=== PATIENT | male | born 1980 | race African-American/Black ===

== ENCOUNTER 2018-03-04 16:23 | Emergency (ER) | payer BC ==
[2018-03-04] MEDS ORDERED: Codeine/Promethazine 10-6.25 MG/5 ML Syrup 5 ML UD Cup PO STA (17:32)
--- NOTE | 2018-03-04 17:32 | EDM.PDOC ---
ED HPI GENERAL MEDICAL PROBLEM - General Chief Complaint: Respiratory Problem Stated Complaint: COUGH Time Seen by Provider: 03/04/18 17:21 Source of Information: Reports: Patient History Limitations: Reports: No Limitations - History of Present Illness INITIAL COMMENTS - FREE TEXT/NARRATIVE: HISTORY AND PHYSICAL: History of present illness: Patient is a 37-year-old male who presents to the emergency room with complaints of body aches, sore throat, cough and subjective fevers. Mild nausea and generally feeling unwell. He states his symptoms started approximately 10 days ago. His roommate was diagnosed with strep throat. He has been using over- the-counter products without any relief. Denies any chest pain, shortness of breath, abdominal pain, vomiting, diarrhea, constipation or dysuria. He states he has a decreased appetite but has been eating and drinking. Not received the influenza vaccine this year. Review of systems: As per history of present illness and below otherwise all systems reviewed and negative. Past medical history: As per history of present illness and as reviewed below otherwise noncontributory. Surgical history: As per history of present illness and as reviewed below otherwise noncontributory. Social history: See social history for further information Family history: As per history of present illness and as reviewed below otherwise noncontributory. Physical exam: General: Well-developed and well-nourished 37-year-old -[place] male. Alert and oriented. Nontoxic appearing and in no acute distress. HEENT: Atraumatic, normocephalic, pupils equal and reactive bilaterally, negative for conjunctival pallor or scleral icterus, nasal stuffiness otherwise patent bilaterally, mucous membranes moist, TMs normal bilaterally, erythema to the posterior oropharynx without exudate, maxillary sinus tenderness bilaterally , neck supple, nontender, trachea midline. No drooling or trismus noted. No meningeal signs. No hot potato voice noted. No mastoid tenderness. No TMJ. Lungs: Clear to auscultation, breath sounds equal bilaterally, chest nontender. Heart: S1S2, regular rate and rhythm without overt murmur Abdomen: Soft, nondistended, nontender. Negative for masses. Negative for costovertebral tenderness. Pelvis: Stable nontender. Genitourinary: Deferred. Rectal: Deferred. Skin: Intact, warm, dry. No lesions or rashes noted. Extremities: Atraumatic, moves all extremities per self without difficulty or deficits. negative for cords or calf pain. Neurovascular unremarkable. Neuro: Awake, alert, oriented. Cranial nerves II through XII unremarkable. Cerebellum unremarkable. Motor and sensory unremarkable throughout. Exam nonfocal. Notes: Negative chest x-ray and influenza screening. Due to patient's sinus/ pharyngitis symptoms, longevity of symptoms, and recent exposure; will treat with Augmentin. Supportive care measures were reviewed and discussed. He voices understanding and agreeable to plan of care. Denies any further questions or concerns at this time. Diagnostics: Influenza, chest x-ray Therapeutics: Phenergan with codeine Prescription: Augmentin Tylneol #3 (#15) Impression: Pharyngitis Plan: 1. Please take the antibiotic as prescribed. 2. Tylenol and/or ibuprofen as needed for pain and fever management. You may use [id number] lozenges for throat pain relief. Warm saltwater gargle rinses spit 3-4 times daily. Please continue toothbrush once you have started the antibiotic to avoid reinfection. 3. Please follow-up with your primary care provider and oriented the institutional research coordinator in the next 1-2 days. Return to the ED as needed and as discussed. Definitive disposition and diagnosis as appropriate pending reevaluation and review of above. Generalized Pain Score (Numeric/FACES): 10 - Related Data Allergies Allergy/AdvReac Type Severity Reaction Status Date / Time No Known Allergies Allergy Verified 03/04/18 16:42 Home Meds: Home Meds . [No Known Home Meds] 04/13/14 [History] Past Medical History - Past Health History Medical/Surgical History: Denies Medical/Surgical History - Infectious Disease History Infectious Disease History: Reports: Chicken Pox Social & Family History - Family History Family Medical History: Noncontributory - Tobacco Use Smoking Status *Q: Current Every Day Smoker Years of Tobacco use: 20 Packs/Tins Daily: 0.5 - Recreational Drug Use Recreational Drug Use: No ED ROS GENERAL - Review of Systems Review Of Systems: ROS reveals no pertinent complaints other than HPI. ED EXAM, GENERAL - Physical Exam Exam: See Below (See dictation) Course - Vital Signs Last Recorded V/S: Last Vital Signs Temp 98.8 F 03/04/18 16:40 Pulse 97 03/04/18 16:40 Resp 18 03/04/18 16:40 BP 118/76 03/04/18 16:40 Pulse Ox 95 03/04/18 16:40 - Orders/Labs/Meds Meds: Medications Discontinued Medications Generic Name Dose Route Start Last Admin Trade Name Wili PRN Reason Stop Dose Admin Promethazine HCl/Codeine 10 ml 03/04/18 17:32 03/04/18 17:44 Phenergan With Codeine PO 03/04/18 17:33 10 ml NOW STA Administration Departure - Departure Time of Disposition: 18:06 Disposition: Home, Self-Care Clinical Impression: Pharyngitis Qualifiers: Pharyngitis/tonsillitis etiology: unspecified etiology Qualified Code(s): J02.9 - Acute pharyngitis, unspecified - Discharge Information Instructions: Pharyngitis, [id number] Referrals: PCP,None [Primary Care Provider] - Forms: ED Department Discharge Additional Instructions: The following information is given to patients seen in the emergency department who are being discharged to home. This information is to outline your options for follow-up care. We provide all patients seen in our emergency department with a follow-up referral. The need for follow-up, as well as the timing and circumstances, are variable depending upon the specifics of your emergency department visit. If you don't have a primary care physician on staff, we will provide you with a referral. We always advise you to contact your personal physician following an emergency department visit to inform them of the circumstance of the visit and for follow-up with them and/or the need for any referrals to a consulting specialist. The emergency department will also refer you to a specialist when appropriate. This referral assures that you have the opportunity for follow-up care with a specialist. All of these measure are taken in an effort to provide you with optimal care, which includes your follow-up. Under all circumstances we always encourage you to contact your private physician who remains a resource for coordinating your care. When calling for follow-up care, please make the office aware that this follow-up is from your recent emergency room visit. If for any reason you are refused follow-up, please contact the Emergency Department at and asked to speak to the emergency department charge nurse. Primary Care [address] [place] [address] [facility] [address] [place] [address] 1. Please take the antibiotic as prescribed. 2. Tylenol and/or ibuprofen as needed for pain and fever management. You may use yejr-lnd-[id number] lozenges for throat pain relief. Warm saltwater gargle rinses spit 3-4 times daily. Please continue toothbrush once you have started the antibiotic to avoid reinfection. 3. Please follow-up with your primary care provider and oriented the institutional research coordinator in the next 1-2 days. Return to the ED as needed and as discussed.
--- NOTE | 2018-03-04 17:58 | CR ---
INDICATION: Cough chills TECHNIQUE: Two view chest. FINDINGS: The lungs are clear. The heart, mediastinum and pulmonary vessels are of normal size. There is no evidence of pleural disease. IMPRESSION: Negative chest. Dictated by Letty Quintana MD @ Mar 04 2018 5:56PM Signed by Dr. Letty Quintana @ Mar 04 2018 5:56PM
[2018-03-04 18:21] VITALS: BP 118/80
== END 2018-03-04 18:21 | disposition home or self-care (01) ==
LOC: MW.ED 16:23
DX: J02.9 Acute pharyngitis, unspecified (principal); F17.200 Nicotine dependence, unspecified, uncomplicated
CPT/HCPCS: 71046; 87804; 99283; A9270

== ENCOUNTER 2018-12-22 20:49 | Emergency (ER) | payer BC ==
--- NOTE | 2018-12-22 21:12 | EDM.PDOC ---
ED HPI GENERAL MEDICAL PROBLEM - General Chief Complaint: General Stated Complaint: PERSONAL Time Seen by Provider: 12/22/18 21:12 Source of Information: Reports: Patient History Limitations: Reports: No Limitations - History of Present Illness INITIAL COMMENTS - FREE TEXT/NARRATIVE: HISTORY AND PHYSICAL: History of present illness: Patient is a 38-year-old male presents to the ED with complaint of testicular pain and swelling. 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 He states he felt a small pop in the groin but did not think much of it. He states it started swelling shortly after and the past few days he is having a lot of testicular pain. He denies fevers, chills, nausea, vomiting, abdominal pain, dysuria, or penile discharge. He denies significant past medical history. Review of systems: As per history of present illness and below otherwise all systems reviewed and negative. Past medical history: As per history of present illness and as reviewed below otherwise noncontributory. Surgical history: As per history of present illness and as reviewed below otherwise noncontributory. Social history: No reported history of drug or alcohol abuse. Family history: As per history of present illness and as reviewed below otherwise noncontributory. Physical exam: General: Patient sitting comfortably in no acute distress and nontoxic appearing HEENT: Atraumatic, normocephalic, pupils reactive, negative for conjunctival pallor or scleral icterus, mucous membranes moist, throat clear, neck supple, nontender, trachea midline. No meningeal signs. Lungs: Clear to auscultation, breath sounds equal bilaterally, chest nontender. Heart: S1S2, regular, negative for clicks, rubs, or overt murmur. Abdomen: Soft, nondistended, nontender. Negative for masses or hepatosplenomegaly. Negative for costovertebral tenderness. No rigidity, rebound , guarding. Pelvis: Stable nontender. Genitourinary: There is notable swelling of the right testicle without any obvious erythema or warmth. Pain to palpation of the right spermatacord, pain to palpation of the right testicle diffusely. No pain to palpation of the left testicle. Patient unable to tolerate examination for hernia. Rectal: Deferred. Extremities: Atraumatic, negative for cords or calf pain. Neurovascular unremarkable. Neuro: Awake, alert, oriented. Cranial nerves II through XII unremarkable. Cerebellum unremarkable. Motor and sensory unremarkable throughout. Exam nonfocal. Notes: Diagnostics: Scrotal US, UA Therapeutics: Toradol 60mg IM Prescriptions: Impression: Testicular pain, hydrocele, acute epididyal orchitis Plan: Take medication as instructed Follow up with urology Return to ED as needed as discussed Definitive disposition and diagnosis as appropriate pending reevaluation and review of above. Right Scrotum Pain Score (Numeric/FACES): 7 - Related Data Allergies Allergy/AdvReac Type Severity Reaction Status Date / Time No Known Allergies Allergy Verified 12/22/18 20:52 Home Meds: Home Meds Doxycycline [Vibramycin] 100 mg PO BID 10 Days #20 tab 12/22/18 [Rx] Past Medical History - Past Health History Medical/Surgical History: Denies Medical/Surgical History - Infectious Disease History Infectious Disease History: Reports: Chicken Pox Social & Family History - Family History Family Medical History: Noncontributory - Tobacco Use Smoking Status *Q: Current Every Day Smoker Years of Tobacco use: 20 Packs/Tins Daily: 0.5 - Caffeine Use Caffeine Use: Reports: Energy Drinks - Recreational Drug Use Recreational Drug Use: No ED ROS GENERAL - Review of Systems Review Of Systems: ROS reveals no pertinent complaints other than HPI. ED EXAM, GENERAL - Physical Exam Exam: See Below (see dictation) Course - Vital Signs Last Recorded V/S: Last Vital Signs Temp 97.5 F 12/22/18 20:52 Pulse 105 H 12/22/18 20:52 Resp 20 12/22/18 20:52 BP 155/96 H 12/22/18 20:52 Pulse Ox 98 12/22/18 20:52 - Orders/Labs/Meds Orders: Active Orders 24 hr Category Date Time Status Scrotal Duplex Ltd [US] Routine Exams 12/22/18 Ordered UA RFX ZAIRE AND CULT IF INDIC [URIN] Stat Lab 12/22/18 21:54 Ordered Departure - Departure Time of Disposition: 22:34 Disposition: Home, Self-Care 01 Condition: Good Clinical Impression: Testicular pain, Epididymo-orchitis - Discharge Information Prescriptions: Doxycycline [Vibramycin] 100 mg PO BID 10 Days #20 tab Referrals: PCP,None [Primary Care Provider] - Forms: ED Department Discharge Additional Instructions: The following information is given to patients seen in the emergency department who are being discharged to home. This information is to outline your options for follow-up care. We provide all patients seen in our emergency department with a follow-up referral. The need for follow-up, as well as the timing and circumstances, are variable depending upon the specifics of your emergency department visit. If you don't have a primary care physician on staff, we will provide you with a referral. We always advise you to contact your personal physician following an emergency department visit to inform them of the circumstance of the visit and for follow-up with them and/or the need for any referrals to a consulting specialist. The emergency department will also refer you to a specialist when appropriate. This referral assures that you have the opportunity for follow-up care with a specialist. All of these measure are taken in an effort to provide you with optimal care, which includes your follow-up. Under all circumstances we always encourage you to contact your private physician who remains a resource for coordinating your care. When calling for follow-up care, please make the office aware that this follow-up is from your recent emergency room visit. If for any reason you are refused follow-up, please contact the [facility] Emergency Department at and asked to speak to the emergency department charge nurse. [facility] Primary Care [address] [place] [address] [place] [address] [facility] Specialty Care - Urology [address] [place] [address] Take medication as instructed Follow up with urology Return to ED as needed as discussed - My Orders Last 24 Hours: My Active Orders 12/22/18 21:54 UA RFX ZAIRE AND CULT IF INDIC [URIN] Stat - Assessment/Plan Last 24 Hours: My Active Orders 12/22/18 21:54 UA RFX ZAIRE AND CULT IF INDIC [URIN] Stat
--- NOTE | 2018-12-22 22:06 | US ---
INDICATION: Right hip pain and swelling. TECHNIQUE: Bilateral scrotal/testicular ultrasound. FINDINGS: Moderate heterogeneous scrotal wall thickening on the right with hypervascularity consistent with acute inflammation. Right testis measures 3.2 x 2.6 x 2.9 cm and left testis measures 4.4 x 2.2 x 2.4 cm. Left testicle is normal without mass and with normal arterial and venous blood flow. Left epididymis is within normal limits. Small amount of fluid about the left epididymis. The brush clearing laborer thigh that the right testicle was somewhat rotated and not in normal position in the scrotal sac. Small right hydrocele. Blood flow to the right testicle was increased compared to the left. Heterogeneous mixed echogenicity moderate amount of abnormal increased soft tissue along the right testicle in part related to a prominently enlarged heterogeneous very hypervascular epididymis consistent with acute epididymitis. Some of the soft tissue surrounding the right testicle could be related to acute inflammation of the other surroundings structures in the right scrotal sac. Small cystic lesion along the medial aspect of the testicle has a benign appearance. Remainder negative. IMPRESSION: 1. Marked hypervascularity of a very enlarged heterogeneous epididymis with less prominent hypervascularity involving the right testicle. Findings consistent with acute epididymal orchitis. Ill-defined moderate amount of hypervascular abnormal soft tissue in the right hemiscrotum likely related to surrounding inflammatory tissue. The right scrotal wall is thickened and hypervascular. 2. Small right hydrocele. 3. Small cystic lesion along the medial aspect of the right testicle likely benign. The brush clearing laborer thought that the right testicle is somewhat rotated and not in normal position in the scrotal sac. This is difficult to confirm on static imaging. 4. Left testicle and epididymis within normal limits. Dictated by Jose D Busby MD @ Dec 22 2018 10:04PM Signed by Dr. Jose D Busby @ Dec 22 2018 10:04PM
[2018-12-22] MEDS ORDERED: Ketorolac 60 MG/2 ML SDV IM ONE (22:33)
[2018-12-22 23:23] VITALS: BP 145/82; PULSE 95
--- NOTE | 2018-12-24 12:46 | US ---
EXAM DATE: 12/22/18 PATIENT'S AGE: 38 Patient: MARCOS LARSEN Facility: [facility] Site . Site : [id number] Study: US-Testicle -12/22/2018 9:49:40 PM Ordering Physician: Vivian Brooks Final Report: INDICATION: Right hip pain and swelling. TECHNIQUE: Bilateral scrotal/testicular ultrasound. FINDINGS: Moderate heterogeneous scrotal wall thickening on the right with hypervascularity consistent with acute inflammation. Right testis measures 3.2 x 2.6 x 2.9 cm and left testis measures 4.4 x 2.2 x 2.4 cm. Left testicle is normal without mass and with normal arterial and venous blood flow. Left epididymis is within normal limits. Small amount of fluid about the left epididymis. The paramedic instructor thigh that the right testicle was somewhat rotated and not in normal position in the scrotal sac. Small right hydrocele. Blood flow to the right testicle was increased compared to the left. Heterogeneous mixed echogenicity moderate amount of abnormal increased soft tissue along the right testicle in part related to a prominently enlarged heterogeneous very hypervascular epididymis consistent with acute epididymitis. Some of the soft tissue surrounding the right testicle could be related to acute inflammation of the other surroundings structures in the right scrotal sac. Small cystic lesion along the medial aspect of the testicle has a benign appearance. Remainder negative. IMPRESSION: 1. Marked hypervascularity of a very enlarged heterogeneous epididymis with less prominent hypervascularity involving the right testicle. Findings consistent with acute epididymal orchitis. Ill-defined moderate amount of hypervascular abnormal soft tissue in the right hemiscrotum likely related to surrounding inflammatory tissue. The right scrotal wall is thickened and hypervascular. 2. Small right hydrocele. 3. Small cystic lesion along the medial aspect of the right testicle likely benign. The paramedic instructor thought that the right testicle is somewhat rotated and not in normal position in the scrotal sac. This is difficult to confirm on static imaging. 4. Left testicle and epididymis within normal limits. Dictated by Jose D Busby MD @ Dec 22 2018 10:04PM Signed by: Jose D Busby MD @12/22/2018 10:04:43 PM (Electronic Signature) Report Signed by Proxy. MTDD
== END 2018-12-22 23:26 | disposition home or self-care (01) ==
LOC: MW.ED 20:49
DX: N45.3 Epididymo-orchitis (principal); N43.3 Hydrocele, unspecified; F17.210 Nicotine dependence, cigarettes, uncomplicated
CPT/HCPCS: 76870; 93976; 96372; 99284; J1885; 99283

== ENCOUNTER 2023-12-28 18:43 | Observation (INO) | payer OTHER ==
[2023-12-28 19:11] LABS: APPEARANCE,URINE CLEAR; BILIRUBIN,URINE NEGATIVE (NEGATIVE); COLOR,URINE YELLOW; GLUCOSE,URINE >=1000 mg/dL (NEGATIVE); KETONES,URINE 15 mg/dL (NEGATIVE); LEUKOCYTE ESTERASE,URINE NEGATIVE (NEGATIVE); NITRITE,URINE NEGATIVE (NEGATIVE); OCCULT BLOOD,URINE SMALL (NEGATIVE); PH,URINE 5.5 (5.0-8.0); PROTEIN,URINE TRACE mg/dL (NEGATIVE); UROBILINOGEN,URINE 0.2 EU/dL (<2.0)
[2023-12-28 19:21] LABS: BACTERIA,URINE RARE (NEGATIVE); EPITHELIAL CELLS,URINE RARE (NONE-FEW); RBC,URINE 0-1 (0-2/HPF)
[2023-12-28] MEDS: Sodium Chloride 0.9% 1,000 ML IV STA ×2 (19:35)
[2023-12-28 19:50] LABS: BASE EXCESS VENOUS -2.1 (-2.0-3.0); BASOPHILS ABSOLUTE AUTO 0.07 K/uL (0.00-0.20); EOSINOPHILS ABSOLUTE AUTO 0.08 K/uL (0.00-0.45); EOSINOPHILS PERCENT AUTO 1.1 % (0.0-6.0); HEMOGLOBIN 16.4 g/dL (14.0-18.0); IMMATURE GRAN ABSOLUTE AUTO 0.03 K/uL (0.00-0.05); IMMATURE GRAN PERCENT AUTO 0.4 % (0.0-0.4); LYMPHOCYTES ABSOLUTE AUTO 3.59 K/uL (1.00-4.80); LYMPHOCYTES PERCENT AUTO 48.8 % (24.0-44.0); MEAN CORPUSCULAR HEMOGLOBIN 33.1 pg (28.0-32.0); MEAN CORPUSCULAR HGB CONC 36.4 g/dL (32.0-36.0); MEAN CORPUSCULAR VOLUME 90.7 fL (83.0-99.0); MEAN PLATELET VOLUME 12.3 fL (9.4-12.4); MONOCYTES ABSOLUTE AUTO 0.52 K/uL (0.00-0.80); MONOCYTES PERCENT AUTO 7.1 % (0.0-8.0); NEUTROPHILS ABSOLUTE AUTO 3.07 K/uL (1.80-7.70); NEUTROPHILS PERCENT AUTO 41.6 % (41.0-71.0); PH,VENOUS 7.35 (7.31-7.41); PLATELET COUNT,PLT 230 K/uL (150-400); RED BLOOD CELL COUNT 4.96 M/uL (4.52-5.90); WHITE BLOOD CELL COUNT,WBC 7.36 K/uL (3.9-11.3)
[2023-12-28 20:12] LABS: MAGNESIUM 2.4 mg/dL (1.8-2.4); PHOSPHORUS 4.5 mg/dL (2.6-4.7)
[2023-12-28 20:33] LABS: ALBUMIN 4.2 g/dL (3.4-5.0); BILIRUBIN TOTAL 0.5 mg/dL (0.2-1.0); CARBON DIOXIDE,CO2 22.5 mmol/L (21.0-32.0); CREATININE 1.8 mg/dL (0.8-1.3); EST CRCL DRUG DOSING (CG) 58.08 mL/min; POTASSIUM,K 4.5 mmol/L (3.5-5.1); PROTEIN TOTAL,TP 8.3 g/dL (6.4-8.2)
[2023-12-28] MEDS ORDERED: 50% Dextrose in Water 50 ML Syringe IVPUSH PRN ×2 (20:44→23:19)
[2023-12-28] MEDS ORDERED: Glucagon,Human Recombinant 1 MG Vial IM PRN ×2 (20:44→23:19)
[2023-12-28] MEDS: Insulin Regular, Human 100 Units/ML 10 ML Vial IVPUSH STA (20:59)
[2023-12-29] MEDS: Insulin Glargine,Hum.Rec.Anlog 100 UNIT/ML 3 ML Pen SUBCUT SCH (01:43)
[2023-12-29] MEDS: Insulin Regular, Human 100 Units/ML 10 ML Vial SUBCUT SCH (01:44)
[2023-12-29] MEDS: Sodium Chloride 0.9% 1,000 ML IV SCH (03:40)
[2023-12-29 07:02] LABS: BASOPHILS ABSOLUTE AUTO 0.08 K/uL (0.00-0.20); BASOPHILS PERCENT AUTO 1.3 % (0.0-1.0); EOSINOPHILS ABSOLUTE AUTO 0.13 K/uL (0.00-0.45); EOSINOPHILS PERCENT AUTO 2.1 % (0.0-6.0); HEMATOCRIT 37.6 % (42.0-52.0); HEMOGLOBIN 12.9 g/dL (14.0-18.0); IMMATURE GRAN ABSOLUTE AUTO 0.01 K/uL (0.00-0.05); IMMATURE GRAN PERCENT AUTO 0.2 % (0.0-0.4); LYMPHOCYTES ABSOLUTE AUTO 3.46 K/uL (1.00-4.80); LYMPHOCYTES PERCENT AUTO 56.7 % (24.0-44.0); MEAN CORPUSCULAR HEMOGLOBIN 31.6 pg (28.0-32.0); MEAN CORPUSCULAR HGB CONC 34.3 g/dL (32.0-36.0); MEAN CORPUSCULAR VOLUME 92.2 fL (83.0-99.0); MEAN PLATELET VOLUME 12.1 fL (9.4-12.4); MONOCYTES ABSOLUTE AUTO 0.49 K/uL (0.00-0.80); NEUTROPHILS ABSOLUTE AUTO 1.93 K/uL (1.80-7.70); NEUTROPHILS PERCENT AUTO 31.7 % (41.0-71.0); PLATELET COUNT,PLT 178 K/uL (150-400); RED BLOOD CELL COUNT 4.08 M/uL (4.52-5.90)
[2023-12-29 07:19] LABS: CREATININE 1.5 mg/dL (0.8-1.3); EST CRCL DRUG DOSING (CG) 69.7 mL/min; POTASSIUM,K 3.6 mmol/L (3.5-5.1)
[2023-12-29] MEDS: Potassium Chloride 20 MEQ Tab.ER PO ONE (10:01)
[2023-12-29] MEDS: Acetaminophen 325 MG Tab PO PRN (14:18)
[2023-12-29 16:16] VITALS: BP 122/65; PULSE 79
== END 2023-12-29 16:10 | disposition home or self-care (01) ==
LOC: MW.ED 18:43 → MW.ICU 20:50 → MW.MS 21:30
PROVIDERS: ADMIT Internal Medicine; ATTEND Internal Medicine
DX: E11.65 Type 2 diabetes mellitus with hyperglycemia (principal); F17.210 Nicotine dependence, cigarettes, uncomplicated
CPT/HCPCS: 36415; 80048; 80053; 81001; 82009; 82803; 82947; 83690; 83735; 84100; 85025; 96360; 96361; 99285; A9270; G0378; J1815; J7030

== ENCOUNTER 2025-01-04 21:10 | Emergency (ER) | payer BC ==
[2025-01-04 21:23] VITALS: BP 122/89; PULSE 82
[2025-01-04] MEDS: Tetracaine HCl/PF 0.5% 4 ML Bottle EYERT ONE (21:52)
[2025-01-04] MEDS: Fluorescein 1 MG Ophth Strip EYERT ONE (21:52)
== END 2025-01-04 22:14 | disposition home or self-care (01) ==
LOC: MW.ED 21:10
DX: H11.31 Conjunctival hemorrhage, right eye (principal); I10 Essential (primary) hypertension; E11.9 Type 2 diabetes mellitus without complications; Z75.3 Unavailability and inaccessibility of health-care facilities; Z79.899 Other long term (current) drug therapy
CPT/HCPCS: 99283; J3490